=== PATIENT | male | born 1955 | race Caucasian/White ===

== ENCOUNTER → 2021-02-27 | Outpatient (CLI) | payer MEDICARE, MEDICAID ==
--- NOTE | 2021-02-27 10:25 | RAD ---
EXAM: Abdomen sonogram. HISTORY: Aneurysm screening. TECHNIQUE: Sonographic imaging of the abdominal aorta was performed. COMPARISON: None. FINDINGS: The proximal abdominal aorta measures 2.5 cm in caliber. The mid abdominal aorta measures 2 .2 cm in caliber. The distal abdominal aorta measures 1.8 cm in caliber. The common iliac arteries me asure 1.3 cm in caliber. There is minimal partially calcified atherosclerotic plaque involving the ao rta and iliac bifurcation. IMPRESSION: No evidence of adrenal aortic aneurysm. Electronically signed by: Mary Fox MD (02/27/2021 10:23 AM) [id number]
== END ==
LOC: US 09:15
PROVIDERS: ATTEND Family Medicine
DX: I70.0 Atherosclerosis of aorta (principal)
CPT/HCPCS: 76770